=== PATIENT | male | born 1960 | race Caucasian/White ===

== ENCOUNTER 2021-06-11 16:58 | Inpatient (IN) | payer OTHER ==
[~2021-06-11] VITALS: Ht 175.3 cm; Wt 77.8 kg
[2021-06-11] MEDS ORDERED: VITAMIN C500 M4 PO (20:42)
[2021-06-11] MEDS ORDERED: ASPIRIN CHEWABL81 MG PO (20:42)
[2021-06-11] MEDS ORDERED: CARDURA1 MG PO (20:43)
[2021-06-11] MEDS ORDERED: LIPITOR80 MG PO (20:43)
[2021-06-11] MEDS ORDERED: LYRICA 75 MG CA75 MG PO (20:43)
[2021-06-11] MEDS ORDERED: TRANDATE 200 M200 MG PO (20:43)
[2021-06-11] MEDS ORDERED: ARICEPT10 MG PO (20:44)
[2021-06-11] MEDS ORDERED: CITALOPRAM HBR20 MG PO (20:44)
[2021-06-11] MEDS ORDERED: LANTUS100 UNIT/1 SC (20:45)
[2021-06-11] MEDS ORDERED: VITAMIN D PO (20:45)
[2021-06-11] MEDS ORDERED: NOVOLOG 10100 UNITS/ SC (20:46)
[2021-06-11 21:33] LABS: HEMOGLOBIN 8.3 gm/dl (14.0-17.5); RED BLOOD COUNT 3.11 M/UL (4.20-5.50); WHITE BLOOD COUNT 8.6 K/UL (4.5-11.0)
[2021-06-12 03:31] LABS: HEMOGLOBIN 8.1 gm/dl (14.0-17.5); RED BLOOD COUNT 3.06 M/UL (4.20-5.50); WHITE BLOOD COUNT 8.6 K/UL (4.5-11.0)
[2021-06-12] MEDS ORDERED: ISOSORBIDE MONO30 MG PO (09:54)
[2021-06-12] MEDS ORDERED: AMLODIPINE BESY10 MG PO (09:55)
[2021-06-12] MEDS ORDERED: MULTI-VITAMIN1 EACH PO (09:55)
[2021-06-12] MEDS ORDERED: NAMENDA5 MG PO (09:56)
[2021-06-12] MEDS ORDERED: BUSPIRONE HCL5 MG PO (09:56)
[2021-06-12] MEDS ORDERED: LASIX20 MG PO (09:58)
[2021-06-12] MEDS ORDERED: LIORESAL TAB 1010 MG PO (09:59)
[2021-06-12] MEDS ORDERED: MASOPHEN500 MG PO (10:01)
[2021-06-13 02:16] LABS: HEMOGLOBIN 8.3 gm/dl (14.0-17.5); RED BLOOD COUNT 3.04 M/UL (4.20-5.50)
[2021-06-13 09:58] LABS: URINE CREATININE 46.9 mg/dL
[2021-06-13 11:14] LABS: HBSAG SCREEN Negative (Negative); HEP B CORE AB, TOT Negative (Negative); HEP C VIRUS AB <0.1 (0.0-0.9)
[2021-06-18 03:05] LABS: HEMOGLOBIN 8.4 gm/dl (14.0-17.5); RED BLOOD COUNT 3.16 M/UL (4.20-5.50); WHITE BLOOD COUNT 8.3 K/UL (4.5-11.0)
--- NOTE | 2021-06-18 03:36 | NUR ---
NOTIFIED DR. BROWN OF CRITICAL BUN OF 120. NO NEW ORDERS AT THIS TIME.
--- NOTE | 2021-06-18 09:56 | NUR ---
0945- NOTIFED DR. DOWD OF PATIENT'S PENIS RED, SWOLLEN. DR. DOWD AT BEDSIDE AND VISUALIZED PENIS. DR. DOWD STATED TO REMOVE CATHETAR. NO ORDER WAS PUT IN COMPUTER. NURSE NOTIFIED HIM THAT I DID NOT FEEL COMFORTABLE REMOVING IT DUE TO POSSIBILITY OF UNABLE TO PUT BACK IN.
[2021-06-18 23:09] LABS: 25-HYDROXY, VITAMIN D 35 ng/mL (.); 25-HYDROXY, VITAMIN D-2 <1.0 ng/mL (.); 25-HYDROXY, VITAMIN D-3 35 ng/mL (.)
[2021-06-19 03:37] LABS: HEMOGLOBIN 8.7 gm/dl (14.0-17.5); RED BLOOD COUNT 3.26 M/UL (4.20-5.50); WHITE BLOOD COUNT 8.2 K/UL (4.5-11.0)
[2021-06-20 03:14] LABS: HEMOGLOBIN 7.7 gm/dl (14.0-17.5); WHITE BLOOD COUNT 7.7 K/UL (4.5-11.0)
[2021-06-20 03:27] LABS: RED BLOOD COUNT 2.88 M/UL (4.20-5.50)
[2021-06-22 03:28] LABS: HEMOGLOBIN 7.8 gm/dl (14.0-17.5); RED BLOOD COUNT 2.96 M/UL (4.20-5.50); WHITE BLOOD COUNT 6.9 K/UL (4.5-11.0)
[2021-06-23 04:19] LABS: HEMOGLOBIN 8.4 gm/dl (14.0-17.5); RED BLOOD COUNT 3.13 M/UL (4.20-5.50); WHITE BLOOD COUNT 6.9 K/UL (4.5-11.0)
[2021-06-23 11:29] LABS: URINE CREATININE 55.5 mg/dL
[2021-06-24 05:25] LABS: HEMOGLOBIN 7.9 gm/dl (14.0-17.5); RED BLOOD COUNT 2.97 M/UL (4.20-5.50); WHITE BLOOD COUNT 7.9 K/UL (4.5-11.0)
--- NOTE | 2021-06-24 06:34 | NUR ---
ROJAS BUN CALLED TO DR. BROWN OF 118 NO NEW ORDERS
--- NOTE | 2021-06-25 03:43 | NUR ---
0340: PATIENT BP ELEVATED 166/55, PT COMPLAIN OF PAIN IN LEFT SHOULDER. MEDICATION ADMINISTERED FOR PAIN MANAGEMENT. BP MEDICATION NOT DUE AT THIS TIME. WILL RECHECK BP, WILL CONTINUE TO MONITOR.
[2021-06-25 06:20] LABS: HEMOGLOBIN 7.9 gm/dl (14.0-17.5); RED BLOOD COUNT 2.92 M/UL (4.20-5.50); WHITE BLOOD COUNT 7.8 K/UL (4.5-11.0)
--- NOTE | 2021-06-25 06:53 | NUR ---
PT BUN CRITICAL CALLED OF 111, IMPROVED FROM 06/24/21.
--- NOTE | 2021-06-25 20:15 | NUR ---
NOTIFIED PHARMACY OF NEED FOR HYDRALAZINE AND BRANDON Carmichael
--- NOTE | 2021-06-26 04:13 | NUR ---
Allevyn changed to coccyx, small shearing noted to left buttock. Coccyx skin intact. No open area noted.
[2021-06-26 06:31] LABS: HEMOGLOBIN 8.4 gm/dl (14.0-17.5); RED BLOOD COUNT 3.09 M/UL (4.20-5.50)
--- NOTE | 2021-06-26 15:38 | NUR ---
provided oral care to patient, instructed of oral care and provided oral care supplies
--- NOTE | 2021-06-27 06:04 | NUR ---
Patient daily weight 178.4 pounds with a 4.5 pound increase from 06/26/21 (173.9 pounds). Patient 24 hour total intake 1980 mls and output 1050 mls.
[2021-06-27 06:22] LABS: RED BLOOD COUNT 2.98 M/UL (4.20-5.50); WHITE BLOOD COUNT 7.7 K/UL (4.5-11.0)
[2021-06-28 02:25] LABS: HEMOGLOBIN 7.9 gm/dl (14.0-17.5); RED BLOOD COUNT 2.93 M/UL (4.20-5.50); WHITE BLOOD COUNT 8.3 K/UL (4.5-11.0)
[2021-06-29 02:32] LABS: HEMOGLOBIN 8.2 gm/dl (14.0-17.5); RED BLOOD COUNT 3.04 M/UL (4.20-5.50); WHITE BLOOD COUNT 7.3 K/UL (4.5-11.0)
[2021-06-30 03:18] LABS: HEMOGLOBIN 8.2 gm/dl (14.0-17.5); RED BLOOD COUNT 2.95 M/UL (4.20-5.50); WHITE BLOOD COUNT 6.7 K/UL (4.5-11.0)
[2021-07-01 03:10] LABS: HEMOGLOBIN 8.5 gm/dl (14.0-17.5); RED BLOOD COUNT 3.05 M/UL (4.20-5.50); WHITE BLOOD COUNT 6.7 K/UL (4.5-11.0)
[2021-07-01] MEDS ORDERED: CATAPRES 0.1MG0.1 MG PO (11:20)
[2021-07-01] MEDS ORDERED: FERROUS SULFAT325 M2 PO (11:20)
[2021-07-01] MEDS ORDERED: HYDRALAZINE HCL50 MG PO (11:20)
[2021-07-01] MEDS ORDERED: NICARDIPINE HCL30 MG PO (11:24)
[2021-07-01] MEDS ORDERED: LISINOPRIL10 MG PO (11:24)
[2021-07-01] MEDS ORDERED: CARVEDILOL3.125 MG PO (11:24)
== END 2021-07-01 13:55 | disposition home health service (06) | DRG 673 ==
LOC: PROG CARE 19:56 → CCU 19:56 → M/S 19:56 → PROG CARE 06-12 23:14 → M/S 06-14 14:28
PROVIDERS: Internal Medicine; Internal Medicine Nephrology; Surgery; ADMIT Internal Medicine
PROC: B24BZZZ Ultrasonography of Heart with Aorta (ICD-10-PCS; 2021-06-12)
PROC: 0DNW0ZZ Release Peritoneum, Open Approach (ICD-10-PCS; 2021-06-26)
PROC: 0DJW4ZZ Inspection of Peritoneum, Percutaneous Endoscopic Approach (ICD-10-PCS; principal; 2021-06-26 12:47)
PROC: 0JH63XZ Insertion of Tunneled Vascular Access Device into Chest Subcutaneous Tissue and Fascia, Percutaneous Approach (ICD-10-PCS; 2021-06-27)
PROC: 05HM33Z Insertion of Infusion Device into Right Internal Jugular Vein, Percutaneous Approach (ICD-10-PCS; 2021-06-27)
PROC: 5A1D70Z Performance of Urinary Filtration, Intermittent, Less than 6 Hours Per Day (ICD-10-PCS; 2021-06-27)
PROC: 5A1D70Z Performance of Urinary Filtration, Intermittent, Less than 6 Hours Per Day (ICD-10-PCS; 2021-06-28)
PROC: 5A1D70Z Performance of Urinary Filtration, Intermittent, Less than 6 Hours Per Day (ICD-10-PCS; 2021-06-30)
DX: N17.9 Acute kidney failure, unspecified (principal); R53.2 Functional quadriplegia; Z20.822 Contact with and (suspected) exposure to COVID-19; J96.01 Acute respiratory failure with hypoxia; I50.43 Acute on chronic combined systolic (congestive) and diastolic (congestive) heart failure; G93.41 Metabolic encephalopathy; I69.352 Hemiplegia and hemiparesis following cerebral infarction affecting left dominant side; I13.2 Hypertensive heart and chronic kidney disease with heart failure and with stage 5 chronic kidney disease, or end stage renal disease; E44.0 Moderate protein-calorie malnutrition; E87.2 Acidosis; I16.1 Hypertensive emergency; I25.10 Atherosclerotic heart disease of native coronary artery without angina pectoris; E11.22 Type 2 diabetes mellitus with diabetic chronic kidney disease; E11.40 Type 2 diabetes mellitus with diabetic neuropathy, unspecified; H47.612 Cortical blindness, left side of brain; E11.51 Type 2 diabetes mellitus with diabetic peripheral angiopathy without gangrene; E11.319 Type 2 diabetes mellitus with unspecified diabetic retinopathy without macular edema; E86.0 Dehydration; K66.0 Peritoneal adhesions (postprocedural) (postinfection); D63.1 Anemia in chronic kidney disease; N18.6 End stage renal disease; Z66 Do not resuscitate; E88.09 Other disorders of plasma-protein metabolism, not elsewhere classified; R00.1 Bradycardia, unspecified; F32.A Depression, unspecified; L89.312 Pressure ulcer of right buttock, stage 2; D50.9 Iron deficiency anemia, unspecified; Z91.14 Patient's other noncompliance with medication regimen; F41.9 Anxiety disorder, unspecified; Z95.828 Presence of other vascular implants and grafts; Z95.5 Presence of coronary angioplasty implant and graft; Z83.3 Family history of diabetes mellitus; Z91.15 Patient's noncompliance with renal dialysis; Z79.4 Long term (current) use of insulin; Z91.81 History of falling; Z87.891 Personal history of nicotine dependence; Z79.82 Long term (current) use of aspirin; Z79.899 Other long term (current) drug therapy; Z99.2 Dependence on renal dialysis
CPT/HCPCS: ECHO; 36415; 36600; 71045; 77001; 80048; 80053; 80307; 82306; 82550; 82553; 82570; 82575; 82728; 82803; 82962; 83036; 83540; 83550; 83735; 83880; 84100; 84439; 84443; 84484; 85025; 85027; 85610; 85652; 86140; 86704; 86706; 86708; 86803; 87340; 90935; 90937; 93005; 93306; 97110-GP-CQ; 97116-GP-CQ; 97162; 97166; 97530; 97530-GP-CQ; A6212; C1750; C1769; C1894; C9113; J0360; J0690; J1100; J1205; J1642; J1650; J1756; J1940; J2001; J2405; J2704; J2710; J2997; J3010; J7030; J7040; J7120; P9047; Q5106; U0002

== ENCOUNTER 2021-08-05 13:42 | Inpatient (IN) | payer OTHER ==
[~2021-08-05] VITALS: Ht 175.3 cm; Wt 65.4 kg
[~2021-08-05 13:42] MED LIST: AMLODIPINE BESY10 MG PO; ARICEPT10 MG PO; ASPIRIN EC81 MG PO; BACLOFEN5 MG PO; BUSPIRONE HCL5 MG PO; CARDURA1 MG PO; CARVEDILOL3.125 MG PO; CATAPRES 0.1MG0.1 MG PO; CITALOPRAM HBR40 MG PO; FERROUS SULFAT325 M2 PO; HYDRALAZINE HCL50 MG PO; ISOSORBIDE MONO30 MG PO; LANTUS100 UNIT/1 SQ; LASIX20 MG PO; LIPITOR80 MG PO; LISINOPRIL10 MG PO; LYRICA 75 MG CA75 MG PO; MASOPHEN500 MG PO; MULTI-VITAMIN1 EACH PO; NAMENDA5 MG PO; NICARDIPINE HCL30 MG PO; NOVOLOG 10100 UNITS/ SC; TRANDATE 200 M200 MG PO; VITAMIN C500 M4 PO; VITAMIN D PO
[2021-08-05] MEDS ORDERED: FUROSEMIDE20 MG PO (14:35)
[2021-08-05] MEDS ORDERED: MEGACE 400400 MG/10 PO (14:36)
[2021-08-05] MEDS ORDERED: NIFEDIPINE ER60 M1 PO (14:36)
[2021-08-05] MEDS ORDERED: HYDRALAZINE HC100 MG PO (14:38)
[2021-08-05] MEDS ORDERED: CARVEDILOL3.125 MG PO (14:38)
[2021-08-05] MEDS ORDERED: CLONIDINE HCL0.3 MG PO (14:38)
[2021-08-05] MEDS ORDERED: FLONASE ALLER15.8 ML (14:39)
[2021-08-05] MEDS ORDERED: LACTULOSE10 GM/15 M PO (14:39)
[2021-08-05] MEDS ORDERED: FERROUS SULFAT325 MG PO (14:40)
[2021-08-05] MEDS ORDERED: VITAMIN D350 MCG PO (14:41)
[2021-08-05] MEDS ORDERED: ZESTRIL20 MG PO (14:41)
[2021-08-05 20:12] LABS: HEMOGLOBIN 11.8 gm/dl (14.0-17.5); RED BLOOD COUNT 4.24 M/UL (4.20-5.50)
[2021-08-06 05:10] LABS: HBSAG SCREEN Negative (Negative); HCV AB <0.1 (0.0-0.9); HEP A AB, IGM Negative (Negative); HEP B CORE AB, IGM Negative (Negative)
[2021-08-07 03:56] LABS: HEMOGLOBIN 11.6 gm/dl (14.0-17.5); RED BLOOD COUNT 4.2 M/UL (4.20-5.50); WHITE BLOOD COUNT 9.3 K/UL (4.5-11.0)
[2021-08-09 06:35] LABS: HEMOGLOBIN 11.7 gm/dl (14.0-17.5); RED BLOOD COUNT 4.3 M/UL (4.20-5.50); WHITE BLOOD COUNT 10.2 K/UL (4.5-11.0)
[2021-08-10 06:34] LABS: HEMOGLOBIN 11.5 gm/dl (14.0-17.5); RED BLOOD COUNT 4.21 M/UL (4.20-5.50); WHITE BLOOD COUNT 12.4 K/UL (4.5-11.0)
[2021-08-10] MEDS ORDERED: ROXANOL SOLN20 MG/ML PO ×3 (12:18→16:48)
== END 2021-08-10 18:59 | DRG 70 ==
LOC: PROG CARE 13:42 → MED SURG 4 08-08 11:23
PROVIDERS: Internal Medicine; Internal Medicine Nephrology; ADMIT Internal Medicine
DX: G93.41 Metabolic encephalopathy (principal); N18.6 End stage renal disease; R53.2 Functional quadriplegia; J96.01 Acute respiratory failure with hypoxia; I12.0 Hypertensive chronic kidney disease with stage 5 chronic kidney disease or end stage renal disease; I69.352 Hemiplegia and hemiparesis following cerebral infarction affecting left dominant side; E44.0 Moderate protein-calorie malnutrition; I50.32 Chronic diastolic (congestive) heart failure; I13.2 Hypertensive heart and chronic kidney disease with heart failure and with stage 5 chronic kidney disease, or end stage renal disease; D63.1 Anemia in chronic kidney disease; H47.612 Cortical blindness, left side of brain; D50.9 Iron deficiency anemia, unspecified; E11.22 Type 2 diabetes mellitus with diabetic chronic kidney disease; E11.40 Type 2 diabetes mellitus with diabetic neuropathy, unspecified; L89.322 Pressure ulcer of left buttock, stage 2; I25.10 Atherosclerotic heart disease of native coronary artery without angina pectoris; L89.629 Pressure ulcer of left heel, unspecified stage; E11.51 Type 2 diabetes mellitus with diabetic peripheral angiopathy without gangrene; I73.9 Peripheral vascular disease, unspecified; F41.9 Anxiety disorder, unspecified; R53.81 Other malaise; G89.29 Other chronic pain; F32.A Depression, unspecified; L89.312 Pressure ulcer of right buttock, stage 2; Z66 Do not resuscitate; Z99.2 Dependence on renal dialysis; Z95.5 Presence of coronary angioplasty implant and graft; Z83.3 Family history of diabetes mellitus; Z74.01 Bed confinement status
CPT/HCPCS: 36415; 70450; 70551; 80048; 80053; 80074; 81001; 82140; 82607; 82962; 83735; 84100; 85025; 87040; 90935; 90937; A6212; J1644; J2060; J2270; J2997